=== PATIENT | female | born 1995 | race Caucasian/White ===

== ENCOUNTER 2018-08-29 02:50 | Emergency (ER) | payer BC ==
[~2018-08-29] VITALS: Ht 165.1 cm; Wt 87.1 kg
[2018-08-29 03:00] VITALS: Ht 165.1 cm; Wt 87.1 kg
[2018-08-29 05:14] LABS: BASOPHIL % 0.3 % (0-2); RED CELL DISTRIBUTION WIDTH 14.1 % (11.5-14.5)
[2018-08-29 05:16] LABS: PLATELET COUNT 421 x10^3mcL (130-400)
[2018-08-29 05:19] LABS: CALCIUM 8.8 mg/dL (8.5-10.1); CARBON DIOXIDE 28.1 mmol/L (21-32); CHLORIDE SERUM 103 mmol/L (98-107); CREATININE SERUM 0.8 mg/dL (0.6-1.0); GFR1 > 60 mL/min; GLUCOSE SERUM 92 mg/dL (74-106); POTASSIUM SERUM 3.5 mmol/L (3.5-5.1); SODIUM SERUM 140 mmol/L (136-145)
[2018-08-29 05:43] VITALS: BP 126/71
== END 2018-08-29 05:43 | disposition home or self-care (01) ==
LOC: ED 02:50
PROVIDERS: Emergency Medicine
DX: R55 Syncope and collapse (principal); R53.1 Weakness; R42 Dizziness and giddiness
CPT/HCPCS: 36415

== ENCOUNTER 2019-12-30 18:35 | Emergency (ER) | payer BC ==
[~2019-12-30] VITALS: Ht 165.1 cm; Wt 76.7 kg
[2019-12-30 18:45] VITALS: Ht 165.1 cm; Wt 76.7 kg
[2019-12-30 19:28] LABS: BASOPHIL % 0.4 % (0-2); PLATELET COUNT 358 x10^3mcL (130-400); RED CELL DISTRIBUTION WIDTH 13.4 % (11.5-14.5)
[2019-12-30 19:35] LABS: CALCIUM 8.7 mg/dL (8.5-10.1); CARBON DIOXIDE 26.8 mmol/L (21-32); CHLORIDE SERUM 105 mmol/L (98-107); CREATININE SERUM 0.9 mg/dL (0.6-1.0); GFR1 > 60 mL/min; GLUCOSE SERUM 85 mg/dL (74-106); POTASSIUM SERUM 3.5 mmol/L (3.5-5.1); SODIUM SERUM 141 mmol/L (136-145)
[2019-12-30 19:39] LABS: ALBUMIN 3.7 g/dL (3.4-5.0); ALKALINE PHOSPHATASE 63 U/L (46-116); ALT/SGPT 35 U/L (14-59); AST/SGOT 20 U/L (15-37); BILIRUBIN TOTAL 0.2 mg/dL (0.20-1.00); MAGNESIUM 1.8 mg/dL (1.8-2.4); TOTAL PROTEIN, SERUM 7.5 g/dL (6.4-8.2)
[2019-12-30 21:30] VITALS: BP 115/72
== END 2019-12-30 21:30 | disposition home or self-care (01) ==
LOC: ED 18:35
PROVIDERS: Emergency Medicine
DX: M25.512 Pain in left shoulder (principal); R20.2 Paresthesia of skin; J00 Acute nasopharyngitis [common cold]
CPT/HCPCS: 36415

== ENCOUNTER 2020-04-28 19:26 | Emergency (ER) | payer BC ==
[~2020-04-28] VITALS: Ht 165.1 cm; Wt 73.9 kg
[2020-04-28 19:43] VITALS: Ht 165.1 cm; Wt 73.9 kg
[2020-04-28 20:33] VITALS: BP 133/76
== END 2020-04-28 20:33 | disposition home or self-care (01) ==
LOC: ED 19:26
DX: F41.9 Anxiety disorder, unspecified (principal)
CPT/HCPCS: 82962